=== PATIENT | male | born 1975 | race American Indian/Alaskan Native ===

== ENCOUNTER → 2017-08-19 | Emergency (ER) | payer MEDICARE ==
[~2017-08-19] MED LIST: APRESOLINE IV ONE; D5W/0.45% NACL/KCL 20 MEQ 20 MEQ/1,000 ML BAG IV ONE
[2017-08-19 20:48] LABS: Basophils % (Auto) 0.5 % (0.0-1.8); Eosinophils % (Auto) 0.6 % (0.0-4.3); Hematocrit 29.1 % (35.5-45.6); Hemoglobin 9.9 gm/dl (11.8-15.2); Lymphocytes # (Auto) 0.7 K/mm3 (1.2-5.4); Lymphocytes % (Auto) 9.7 % (13.4-35.0); Mean Corpuscular HGB Conc 34 % (32-34); Mean Corpuscular Hemoglobin 30 pg (28-32); Mean Corpuscular Volume 87 fl (84-94); Monocytes # (Auto) 0.3 K/mm3 (0.0-0.8); Monocytes % (Auto) 4.8 % (0.0-7.3); Platelet Count 182 K/mm3 (140-440); Red Blood Count 3.35 M/mm3 (3.65-5.03); Red Cell Distribution Width 17.9 % (13.2-15.2)
[2017-08-19 21:00] LABS: Calcium 8.1 mg/dL (8.4-10.2)
--- NOTE | 2017-08-19 21:18 | Emergency Department Report ---
ED Headache HPI - General Chief Complaint: High BP Stated Complaint: HEADACHE Time Seen by Provider: 08/19/17 21:15 - History of Present Illness Initial Comments: Patient is a 42-year-old male who is presenting status post headache. Patient' s states he normally gets hypertensive with dialysis. Patient on hemodialysis on Saturday was a Saturday. Patient was at dialysis today and started getting a headache. Patient does not have a history of headaches blood pressure did elevate. Patient denies any other signs and symptoms of end organ damage such as chest pain shortness of breath. The patient's only medical problems are hypertension and end-stage renal disease. Patient was sent from dialysis here because of the severe headache. Patient states headache was global 7 out of 10 in severity. Patient states is now resolved. Patient did have his dialysis stopped early secondary to this headache. Associated Symptoms: denies: facial pain, fever/chills, flushing, loss of consciousness, nausea/vomiting, nasal congestion, nasal drainage, numbness in legs/feet, seizures, sinus infection, stiff neck Allergies/Adverse Reactions: Allergies vancomycin Allergy (Verified 08/19/17 17:42) Unknown Home Medications: Ambulatory Orders Labetalol [Normodyne] 300 mg PO BID 08/19/17 Lisinopril [Zestril TAB] 40 mg PO QDAY 08/19/17 Sertraline [Zoloft] 50 mg PO QHS 08/19/17 Vit B Comp No.3/Folic/C/Biotin [Nephro-Juan Rx Tablet] 1 each PO DAILY 08/19/17 ED Review of Systems ROS: Stated complaint: HEADACHE Other details as noted in HPI Comment: All other systems reviewed and negative ED Past Medical Hx - Past Medical History Hx Hypertension: Yes Hx Renal Disease: Yes (HD-MWF) - Surgical History Additional Surgical History: graft BECKI - Social History Smoking Status: Current Every Day Smoker Substance Use Type: None - Medications Home Medications: Home Medications Medication Instructions Recorded Confirmed Last Taken Type Labetalol [Normodyne] 300 mg PO BID 08/19/17 08/19/17 Unknown History Lisinopril [Zestril TAB] 40 mg PO QDAY 08/19/17 08/19/17 Unknown History Sertraline [Zoloft] 50 mg PO QHS 08/19/17 08/19/17 Unknown History Vit B Comp No.3/Folic/C/Biotin 1 each PO DAILY 08/19/17 08/19/17 Unknown History [Nephro-Juan Rx Tablet] ED Physical Exam - General Limitations: No Limitations General appearance: alert, in no apparent distress - Head Head exam: Present: atraumatic, normocephalic - Eye Eye exam: Present: normal appearance - ENT ENT exam: Present: mucous membranes moist - Neck Neck exam: Present: normal inspection - Respiratory Respiratory exam: Present: normal lung sounds bilaterally. Absent: respiratory distress, wheezes, rales - Cardiovascular Cardiovascular Exam: Present: regular rate, normal rhythm. Absent: systolic murmur, diastolic murmur, rubs, gallop - GI/Abdominal GI/Abdominal exam: Present: soft, normal bowel sounds. Absent: distended, tenderness - Rectal Rectal exam: Present: deferred - Extremities Exam Extremities exam: Present: normal inspection - Back Exam Back exam: Present: normal inspection - Neurological Exam Neurological exam: Present: alert, oriented X3, CN II-XII intact, reflexes normal. Absent: motor sensory deficit - Psychiatric Psychiatric exam: Present: normal affect, normal mood - Skin Skin exam: Present: warm, dry, intact, normal color. Absent: rash ED Course Vital Signs 08/19/17 08/19/17 08/19/17 17:34 21:20 21:52 Temperature 98.1 F 97.9 F Pulse Rate 92 H 74 73 Respiratory 18 20 Rate Blood Pressure 190/108 184/102 Blood Pressure 184/102 [Right] O2 Sat by Pulse 99 98 Oximetry 08/19/17 08/19/17 22:05 22:30 Temperature Pulse Rate Respiratory 20 20 Rate Blood Pressure Blood Pressure 166/85 [Right] O2 Sat by Pulse 98 99 Oximetry ED Medical Decision Making - Lab Data Result diagrams: 08/19/17 20:34 08/19/17 20:34 - EKG Data -: EKG Interpreted by Ne - EKG Data Interpretation: other 08/19/17 21:17 EKG shows sinus rhythm rate of 77 normal axis normal and a low-dose there is evidence of right ventricular hypertrophy, interpretation is 1900 - Radiology Data Radiology results: report reviewed CT head without contrast shows a high attenuated mass in the right temporal brain of intermediate etiology however suspicious for proteinaceous or possibly micro-hemorrhagic intra-axial lesion. The shortness of potential differential considerations include but are not limited to astrocytoma, metastatic disease, lymphoma. Meningiomas not favored. There appears to be predominantly hyper enhancing mass with areas of necrosis. There is midline shift right to left. 6 mm. There is also a large amount of surrounding edema. Mass is 3.4 x 3.7 cm - Medical Decision Making Patient is a 42-year-old [place] male who is on dialysis Saturday was a Saturday. Patient states he gets headaches regularly during dialysis and his blood pressure sometimes elevates. Blood pressure at the time of dispose 160s systolic and he did have a positive response to hydralazine. I did contact [facility] regarding this patient his first transfer because of the possibility of micro-hemorrhagic components to his lesion. Dr. Melgar is excepting neurosurgeon. Patient be transferred what exam bed is available Critical care attestation.: If time is entered above; I have spent that time in minutes in the direct care of this critically ill patient, excluding procedure time. ED Disposition Clinical Impression: Brain mass, Cerebral hemorrhage, Hypertensive emergency, ESRD (end stage renal disease) on dialysis Disposition: DC/TX-70 ANOTHER TYPE HLTHCARE Is pt being admited?: No Does the pt Need Aspirin: No Condition: Critical Referrals: PRIMARY CARE, [Referring] - 3-5 Days
--- NOTE | 2017-08-19 21:33 | Cat Scan Report ---
FINAL REPORT PROCEDURE: CT HEAD/BRAIN WO CON TECHNIQUE: Computerized tomography of the head was performed without contrast material. HISTORY: headache, hypertension COMPARISON: No prior studies are available for comparison. FINDINGS: Skull and scalp: Normal. Paranasal sinuses: Normal. Ventricles and subarachnoid spaces: Normal. Cerebrum: High attenuated mass in the right temporal lobe measures 3.4 x 3.7 centimeters with moderate to large amount of edema above and below this mass lesion. There is midline shift right to left of 6 millimeters.. Cerebellum and brainstem: No evidence of hemorrhage, acute infarction or mass. Vasculature: Normal. Comments: None. IMPRESSION: High attenuated mass in the right temporal brain of indeterminate etiology however suspicious for a proteinaceous or possibly micro hemorrhagic intra-axial lesion. The short list of potential differential considerations include but are not limited to astrocytoma, metastatic disease, lymphoma. Meningioma is not favored. This appears to be predominately hyperenhancing mass process with serpiginous areas of necrosis Followup CT scan or preferably MRI with IV contrast is advised
[2017-08-19 22:33] LABS: INR 1.08 (0.87-1.13)
[2017-08-19 22:34] LABS: Partial Thromboplastin Time 33.7 Sec. (24.2-36.6)
[2017-08-20 02:44] VITALS: BP 156/84
== END | disposition other institution (70) ==
LOC: ED 16:14
DX: I61.9 Nontraumatic intracerebral hemorrhage, unspecified (principal); G93.9 Disorder of brain, unspecified; I12.0 Hypertensive chronic kidney disease with stage 5 chronic kidney disease or end stage renal disease; N18.6 End stage renal disease; Z99.2 Dependence on renal dialysis; F17.200 Nicotine dependence, unspecified, uncomplicated
CPT/HCPCS: 36415; 70450; 80048; 85025; 85610; 85730; 93005; 93010; 96374; 99285; J0360

== ENCOUNTER 2017-09-06 12:54 | Observation (INO) | payer MEDICARE ==
[2017-09-06] MEDS ORDERED: ZOFRAN IV PRN (15:43)
[2017-09-06] MEDS ORDERED: REGLAN IV PRN (15:43)
[2017-09-06] MEDS ORDERED: PERCOCET 5/325 PO PRN (15:43)
[2017-09-06] MEDS ORDERED: TYLENOL PO PRN (15:43)
[2017-09-06] MEDS ORDERED: AMBIEN PO PRN (15:43)
[2017-09-06] MEDS ORDERED: SODIUM CHLORIDE FLUSH SYRINGE 10 ML IV PRN (15:43)
--- NOTE | 2017-09-06 15:43 | History and Physical Report ---
History of Present Illness Date of examination: 09/06/17 Date of admission: 09/06/17 14:35 Chief complaint: CC High BP History of present illness: [place] Sent from Dr Anthony's office for direct admit For management of High BP of 220/110 and ESRD with volume overload for HD Patient recently had brain tumor removed at [place] 2 weeks ago.Doing well post op otherwise.Was Given Clonidine inOffice and BP in Ed was about 140/90 No SOB Past History Past Medical History: ESRD, hypertension, other (Brain tumor -patient unable to tell the diagnosis) Past Surgical History: Other (AV fistula on LUE and Brain tumor removal) Social history: lives with family, full code Family history: hypertension Medications and Allergies Allergies Allergy/AdvReac Type Severity Reaction Status Date / Time vancomycin Allergy Unknown Verified 08/19/17 17:42 Home Medications Medication Instructions Recorded Confirmed Last Taken Type Labetalol [Normodyne] 300 mg PO BID 08/19/17 09/06/17 Unknown History Lisinopril [Zestril TAB] 40 mg PO QDAY 08/19/17 09/06/17 Unknown History Sertraline [Zoloft] 50 mg PO QHS 08/19/17 09/06/17 Unknown History Vit B Comp No.3/Folic/C/Biotin 1 each PO DAILY 08/19/17 09/06/17 Unknown History [Nephro-Juan Rx Tablet] B Complex 11/Folic/C/Biot/Zinc 1 each PO DAILY 09/06/17 09/06/17 Unknown History [Dialyvite with Zinc Tablet] Calcium Acetate [Phoslo] 2,001 mg PO TID 09/06/17 09/06/17 Unknown History Calcium Carbonate [Tums] 400 mg PO DAILY 09/06/17 09/06/17 Unknown History Sertraline [Zoloft] 50 mg PO QDAY 09/06/17 09/06/17 Unknown History Vit B Comp No.3/Folic/C/Biotin 1 each PO DAILY 09/06/17 09/06/17 Unknown History [Nephro-Juan Rx Tablet] amLODIPine [Norvasc] 10 mg PO DAILY 09/06/17 09/06/17 Unknown History Review of Systems All systems: negative Exam - Constitutional General appearance: Present: no acute distress, well-nourished - EENT Eyes: Present: PERRL ENT: hearing intact, clear oral mucosa - Neck Neck: Present: supple, normal ROM - Respiratory Respiratory effort: normal Respiratory: bilateral: CTA - Cardiovascular Heart rate: 78 Rhythm: regular Heart Sounds: Present: S1 & S2. Absent: rub, click - Extremities Extremities: pulses symmetrical, No edema Peripheral Pulses: within normal limits - Abdominal General gastrointestinal: Present: soft, non-tender, non-distended, normal bowel sounds Male genitourinary: Present: normal - Rectal Rectal Exam: deferred - Integumentary Integumentary: Present: clear, warm, dry - Musculoskeletal Musculoskeletal: gait normal, strength equal bilaterally - Psychiatric Psychiatric: appropriate mood/affect, intact judgment & insight - Neurologic Neurologic: CNII-XII intact, moves all extremities - Allied Health Allied health notes reviewed: nursing, case management Results - Labs CBC & Chem 7: 09/06/17 17:07 09/06/17 17:07 - Imaging and Cardiology EKG: report reviewed Chest x-ray: report reviewed (NAF) Assessment and Plan Advance Directives: Yes (Full code) VTE prophylaxis?: Chemical Plan of care discussed with patient/family: Yes - Patient Problems (1) Hypertensive emergency Current Visit: Yes Status: Acute Plan to address problem: Hydralazine IV 10 mg q3 PRn Resume his home antihypertensives (2) Anemia Current Visit: Yes Status: Chronic Qualifiers: Anemia type: due to chronic kidney disease Chronic kidney disease stage: on chronic dialysis Qualified Code(s): N18.6 - End stage renal disease; D63.1 - Anemia in chronic kidney disease; Z99.2 - Dependence on renal dialysis Plan to address problem: Transfuse during HD (3) ESRD needing dialysis Current Visit: Yes Status: Chronic Plan to address problem: Dr Anthony consulted (4) Volume overload Current Visit: Yes Status: Acute Qualifiers: Hypervolemia type: unspecified Qualified Code(s): E87.70 - Fluid overload, unspecified Plan to address problem: may need HD for 2 or 3 days in a row (5) Brain tumor Current Visit: Yes Status: Resolved Plan to address problem: Removed recently Has Periorbital echymosis sec to surgery Should resolve spontaneously (6) AV fistula occlusion Current Visit: Yes Status: Acute Qualifiers: Encounter type: initial encounter Qualified Code(s): T82.898A - Other specified complication of vascular prosthetic devices, implants and grafts, initial encounter Plan to address problem: Vascular surgery consulted (7) DVT prophylaxis Current Visit: Yes Status: Acute Plan to address problem: only scd's
--- NOTE | 2017-09-06 17:11 | XRay Report ---
FINAL REPORT EXAM: XR CHEST ROUTINE 2V HISTORY: SOB TECHNIQUE: 2 view examination of the chest PRIORS: None FINDINGS: A left venous catheter is in place with distal tip near the cavoatrial junction region. Slight thoracic spine curvature with mid left apex. There is no visible pulmonary consolidation, pleural effusion, or pneumothorax. Cardiac silhouette size is normal without vascular congestion. No visible acute displaced fracture in the regional skeleton. IMPRESSION: No evidence of acute cardiopulmonary disease
[2017-09-06 17:21] LABS: Basophils % (Auto) 0.2 % (0.0-1.8); Eosinophils # (Auto) 0.2 K/mm3 (0.0-0.4); Eosinophils % (Auto) 1.4 % (0.0-4.3); Hemoglobin 6.3 gm/dl (11.8-15.2); Lymphocytes # (Auto) 1.2 K/mm3 (1.2-5.4); Lymphocytes % (Auto) 9.8 % (13.4-35.0); Mean Corpuscular HGB Conc 32 % (32-34); Mean Corpuscular Hemoglobin 28 pg (28-32); Mean Corpuscular Volume 88 fl (84-94); Monocytes # (Auto) 1.1 K/mm3 (0.0-0.8); Monocytes % (Auto) 8.5 % (0.0-7.3); Platelet Count 117 K/mm3 (140-440); Red Blood Count 2.25 M/mm3 (3.65-5.03); Red Cell Distribution Width 18.6 % (13.2-15.2)
[2017-09-06 17:23] LABS: Hematocrit 19.7 % (35.5-45.6)
[2017-09-06 17:47] LABS: Albumin 3.3 g/dL (3.9-5); BUN/Creatinine Ratio 6; Blood Urea Nitrogen 64 mg/dL (9-20); Calcium 7.7 mg/dL (8.4-10.2); Hemolysis Index 5
[2017-09-06] MEDS: NORMODYNE PO SCH (17:53)
[2017-09-06] MEDS: ZESTRIL PO SCH (17:54)
[2017-09-06] MEDS: PEPCID PO SCH ×2 (17:54→22:50)
[2017-09-06 18:00] LABS: Alanine Aminotransferase < 5 units/L (7-56)
[2017-09-06] MEDS ORDERED: NACL 0.9% 500 ML 500 ML IV ONE (18:31)
[2017-09-06] MEDS: ZOLOFT PO SCH (22:50)
[2017-09-06] MEDS: SODIUM CHLORIDE FLUSH SYRINGE 10 ML IV SCH (22:50)
[2017-09-07] MEDS: NORMODYNE PO SCH ×3 (00:08→17:17)
[2017-09-07] MEDS ORDERED: NACL 0.9% 500 ML 500 ML IV ONE ×3 (01:30→13:47)
[2017-09-07] MEDS ORDERED: APRESOLINE IV NR (07:34)
[2017-09-07] MEDS: PHOSLO PO SCH ×3 (08:32→17:17)
[2017-09-07] MEDS ORDERED: NON-FORMULARY (Vit B Comp No.3/Folic/C/Biotin [Nephro-Vite Rx Tablet] 1 EACH) PO SCH (10:00)
[2017-09-07] MEDS: ZESTRIL PO SCH (10:08)
[2017-09-07] MEDS: TUMS PO SCH (10:08)
[2017-09-07] MEDS: PEPCID PO SCH ×2 (10:08→21:18)
[2017-09-07] MEDS: Renal Caps PO SCH (10:09)
[2017-09-07] MEDS: NORVASC PO SCH (10:09)
[2017-09-07] MEDS: SODIUM CHLORIDE FLUSH SYRINGE 10 ML IV SCH ×2 (10:09→21:19)
[2017-09-07] MEDS ORDERED: NACL 0.9% 100 ML IV PRN (11:53)
--- NOTE | 2017-09-07 11:58 | Consultation ---
History of Present Illness - Reason for Consult Consult date: 09/07/17 end stage renal disease, accelerated hypertension Requesting physician: ZOË MCCRARY - History of Present Illness Sent from [facility] For management of High BP of 220/110 and ESRD with volume overload for HD Patient recently had brain tumor removed at [place] 2 weeks ago.Doing well post op otherwise.Was Given Clonidine inOffice and BP in Ed was about 140/90 No SOB Past History Past Medical History: ESRD, hypertension, other (Brain tumor -patient unable to tell the diagnosis) Past Surgical History: Other (AV fistula on LUE and Brain tumor removal) Social history: lives with family, full code Family history: hypertension Medications and Allergies Allergies Allergy/AdvReac Type Severity Reaction Status Date / Time vancomycin Allergy Unknown Verified 08/19/17 17:42 Home Medications Medication Instructions Recorded Confirmed Last Taken Type Labetalol [Normodyne] 300 mg PO BID 08/19/17 09/06/17 Unknown History Lisinopril [Zestril TAB] 40 mg PO QDAY 08/19/17 09/06/17 Unknown History Sertraline [Zoloft] 50 mg PO QHS 08/19/17 09/06/17 Unknown History Vit B Comp No.3/Folic/C/Biotin 1 each PO DAILY 08/19/17 09/06/17 Unknown History [Nephro-Juan Rx Tablet] B Complex 11/Folic/C/Biot/Zinc 1 each PO DAILY 09/06/17 09/06/17 Unknown History [Dialyvite with Zinc Tablet] Calcium Acetate [Phoslo] 2,001 mg PO TID 09/06/17 09/06/17 Unknown History Calcium Carbonate [Tums] 400 mg PO DAILY 09/06/17 09/06/17 Unknown History Sertraline [Zoloft] 50 mg PO QDAY 09/06/17 09/06/17 Unknown History Vit B Comp No.3/Folic/C/Biotin 1 each PO DAILY 09/06/17 09/06/17 Unknown History [Nephro-Juan Rx Tablet] amLODIPine [Norvasc] 10 mg PO DAILY 09/06/17 09/06/17 Unknown History Active Meds: Active Medications Acetaminophen (Tylenol) 650 mg PO Q4H PRN PRN Reason: Pain MILD(1-3)/Fever >100.5/[place] Amlodipine Besylate (Norvasc) 10 mg PO DAILY [facility] Last Admin: 09/07/17 10:09 Dose: 10 mg Calcium Acetate (Phoslo) 2,001 mg PO TID [facility] Last Admin: 09/07/17 08:32 Dose: 2,001 mg Calcium Carbonate/Glycine (Tums) 400 mg PO DAILY [facility] Last Admin: 09/07/17 10:08 Dose: 400 mg Epoetin Gianni (Epogen) 20,000 unit IV ZACK PRN PRN Reason: hemodialysis Famotidine (Pepcid) 10 mg PO BID [facility] Last Admin: 09/07/17 10:08 Dose: 10 mg Sodium Chloride (Nacl 0.9%) 100 mls @ 999 mls/hr IV ZACK PRN PRN Reason: Hypotension Sodium Chloride (Nacl 0.9% 500 Ml) 500 mls @ 0 mls/hr IV ONCE ONE Stop: 09/07/17 11:54 Labetalol HCl (Normodyne) 300 mg PO Q8H [facility] Last Admin: 09/07/17 08:34 Dose: 300 mg Lisinopril (Zestril) 40 mg PO QDAY [facility] Last Admin: 09/07/17 10:08 Dose: 40 mg Metoclopramide HCl (Reglan) 10 mg IV Q6H PRN PRN Reason: Nausea And Vomiting Multivit/Ca Carb/B Cmplx/FA/Prenat (Renal Caps) 1 cap PO QDAY [facility] Last Admin: 09/07/17 10:09 Dose: 1 cap Ondansetron HCl (Zofran) 4 mg IV Q8H PRN PRN Reason: Nausea And Vomiting Oxycodone/Acetaminophen (Percocet 5/325) 1 tab PO Q6H PRN PRN Reason: Pain, Moderate (4-6) Sertraline HCl (Zoloft) 50 mg PO QHS [facility] Last Admin: 09/06/17 22:50 Dose: 50 mg Sodium Chloride (Sodium Chloride Flush Syringe 10 Ml) 10 ml IV BID [facility] Last Admin: 09/07/17 10:09 Dose: 10 ml Sodium Chloride (Sodium Chloride Flush Syringe 10 Ml) 10 ml IV PRN PRN PRN Reason: LINE FLUSH Zolpidem Tartrate (Ambien) 5 mg PO QHS PRN PRN Reason: Insomnia Review of Systems Constitutional: fatigue, weakness, malaise Exam - Vital Signs Vital signs: Vital Signs Temp Pulse Resp Pulse Ox 98.5 F 85 22 99 09/06/17 16:32 09/06/17 16:32 09/06/17 16:32 09/06/17 16:32 - Physical Exam Narrative exam: Review of Systems All systems: negative Exam - Constitutional General appearance: Present: no acute distress, well-nourished - EENT Eyes: Present: PERRL ENT: hearing intact, clear oral mucosa - Neck Neck: Present: supple, normal ROM - Respiratory Respiratory effort: normal Respiratory: bilateral: CTA - Cardiovascular Heart rate: 78 Rhythm: regular Heart Sounds: Present: S1 & S2. Absent: rub, click - Extremities Extremities: pulses symmetrical, No edema Peripheral Pulses: within normal limits - Abdominal General gastrointestinal: Present: soft, non-tender, non-distended, normal bowel sounds Male genitourinary: Present: normal - Rectal Rectal Exam: deferred - Integumentary Integumentary: Present: clear, warm, dry - Musculoskeletal Musculoskeletal: gait normal, strength equal bilaterally - Psychiatric Psychiatric: appropriate mood/affect, intact judgment & insight - Neurologic Neurologic: CNII-XII intact, moves all extremities - Allied Health Allied health notes reviewed: nursing, case management Results - Lab Results 09/06/17 17:07 09/06/17 17:07 Most recent lab results Calcium 7.7 mg/dL (8.4-10.2) L 09/06/17 17:07 Assessment and Plan Impression: * ESRD * Brain mass * symptomatic anemia * Acc HTN * volume overload Plan: * HD today with uf as tolerated * avoid heparin products * transfuse PRBCS * epogen with hd * strict i/o * avoid nephrotoxins * fluid restriction * daily cbc and lytes
--- NOTE | 2017-09-07 12:04 | Progress Note ---
Assessment and Plan Assessment and plan: Patient is a 43 yo man with a history of ESRD on HD, hypertension and tobacco dependency who initially came here to [facility] ED with headaches on 08/19/17 and was found to have brain mass and he was transferred to [facility]. He did have brain mass resection and has a fresh clean surgical scar (it appears the suture has been recently removed). He comes back to [facility] as a direct admit from Dr. Anthony's HD center for bp of 220/110 and volume overload during hemodialysis, pt appears to have slight cognitive delay. -Hypertension urgency: When necessary IV antihypertensives, low-salt diet -End-stage renal disease needing hemodialysis: Nephrology following -Tobacco dependency: Counseled stopping, offered nicotine patch -Recent brain mass, details unavailable: Records from [facility] will be helpful, unlikely obtainable over the weekend History Interval history: Patient was seen and examined. Follow-up on current diagnosis. Overnight uneventful. Patient denies any chest pain, shortness breath, nausea/vomiting or severe headaches. Imaging, nursing note, chart, labs and old chart reviewed. Discussed with patient. Hospitalist Physical - Physical exam Narrative exam: GEN: WDWN, NAD, AWAKE, ALERT, ORIENTATED x 2, some cognitive delay HEENT: , large frontal surgical scar right forehead area, EOMI, PERRL, OP Clear NECK: supple, no adenopathy, no thyromegaly, no JVD CVS/HEART: RRR, NORMAL S1S2, pulses present bilaterally CHEST/LUNGS: CTA B, Symmetrical chest expansion, good air entry bilaterally GI/Abdomen: soft, NTND, good bowel sounds, no guarding or rebound /Bladder: no suprapubic tenderness, no CVA or paraspinal tenderness EXT/Skin: no c/c/e, no obvious rash MSK: FROM x 4 Neuro: CN 2-12 grossly intact, no new focal deficits Psych: calm - Constitutional Vitals: Temp Pulse Resp BP Pulse Ox 98.2 F 88 20 165/96 95 09/07/17 07:35 09/07/17 07:35 09/07/17 07:35 09/07/17 07:35 09/07/17 07:35 General appearance: Present: no acute distress, well-nourished Results - Labs CBC & Chem 7: 09/06/17 17:07 09/06/17 17:07 Labs: Laboratory Last Values WBC 12.4 K/mm3 (4.5-11.0) H 09/06/17 17:07 RBC 2.25 M/mm3 (3.65-5.03) L 09/06/17 17:07 Hgb 6.3 gm/dl (11.8-15.2) L 09/06/17 17:07 Hct 19.7 % (35.5-45.6) L* 09/06/17 17:07 MCV 88 fl (84-94) 09/06/17 17:07 MCH 28 pg (28-32) 09/06/17 17:07 MCHC 32 % (32-34) 09/06/17 17:07 RDW 18.6 % (13.2-15.2) H 09/06/17 17:07 Plt Count 117 K/mm3 (140-440) L 09/06/17 17:07 Lymph % (Auto) 9.8 % (13.4-35.0) L 09/06/17 17:07 [place] % (Auto) 8.5 % (0.0-7.3) H 09/06/17 17:07 Eos % (Auto) 1.4 % (0.0-4.3) 09/06/17 17:07 Baso % (Auto) 0.2 % (0.0-1.8) 09/06/17 17:07 Lymph # 1.2 K/mm3 (1.2-5.4) 09/06/17 17:07 [place] # 1.1 K/mm3 (0.0-0.8) H 09/06/17 17:07 Eos # 0.2 K/mm3 (0.0-0.4) 09/06/17 17:07 Baso # 0.0 K/mm3 (0.0-0.1) 09/06/17 17:07 Seg Neutrophils % 80.1 % (40.0-70.0) H 09/06/17 17:07 Seg Neutrophils # 10.0 K/mm3 (1.8-7.7) H 09/06/17 17:07 Sodium 141 mmol/L (137-145) 09/06/17 17:07 Potassium 4.7 mmol/L (3.6-5.0) 09/06/17 17:07 Chloride 94.6 mmol/L (98-107) L 09/06/17 17:07 Carbon Dioxide 29 mmol/L (22-30) 09/06/17 17:07 Anion Gap 22 mmol/L 09/06/17 17:07 BUN 64 mg/dL (9-20) H 09/06/17 17:07 Creatinine 10.4 mg/dL (0.8-1.5) H 09/06/17 17:07 Estimated GFR 7 ml/min 09/06/17 17:07 BUN/Creatinine Ratio 6 % 09/06/17 17:07 Glucose 85 mg/dL (75-100) 09/06/17 17:07 Hemoglobin A1c < 4.2 % (4-6) 09/06/17 17:07 Calcium 7.7 mg/dL (8.4-10.2) L 09/06/17 17:07 Total Bilirubin 0.30 mg/dL (0.1-1.2) 09/06/17 17:07 AST 58 units/L (5-40) H 09/06/17 17:07 ALT < 5 units/L (7-56) L 09/06/17 17:07 Alkaline Phosphatase 50 units/L (35-129) 09/06/17 17:07 Total Protein 5.9 g/dL (6.3-8.2) L 09/06/17 17:07 Albumin 3.3 g/dL (3.9-5) L 09/06/17 17:07 Albumin/Globulin Ratio 1.3 % 09/06/17 17:07 TSH 3.140 mlU/mL (0.270-4.200) 09/06/17 17:10 Blood Type A POSITIVE 09/06/17 19:43 Antibody Screen Positive 09/06/17 19:43 Antibody Identification Anti-K 09/06/17 19:43 Crossmatch See Detail 09/06/17 19:43
[2017-09-07 13:17] LABS: Hematocrit 20.4 % (35.5-45.6); Hemoglobin 6.9 gm/dl (11.8-15.2)
[2017-09-07 13:54] LABS: Hepatitis A Antibody IgM Non-Reactive (NonReactive); Hepatitis B Core IgM Non-Reactive (NonReactive); Hepatitis B Surface Antigen Non-Reactive (Negative); Hepatitis C Virus Antibody Non-Reactive (NonReactive)
--- NOTE | 2017-09-07 14:30 | Event Note ---
Date: 09/07/17 Consulted due to reported clotted AVG. I saw the patient in diaylsis - the LUE AVG is being used with no problems and normal flows. The dialysis nurse is unsure as to why a consult placed requested. Please call if there are any issues.
[2017-09-07] MEDS ORDERED: NACL 0.9 (PRIMING MACHINE ONLY DIALYSIS) MC ONE (14:56)
[2017-09-07] MEDS: ZOLOFT PO SCH (21:18)
[2017-09-08] MEDS: NORMODYNE PO SCH ×2 (00:30→09:24)
[2017-09-08 05:51] LABS: Basophils % (Auto) 0.1 % (0.0-1.8); Eosinophils # (Auto) 0.1 K/mm3 (0.0-0.4); Hematocrit 28.4 % (35.5-45.6); Hemoglobin 9.5 gm/dl (11.8-15.2); Lymphocytes # (Auto) 0.9 K/mm3 (1.2-5.4); Lymphocytes % (Auto) 8.5 % (13.4-35.0); Mean Corpuscular HGB Conc 34 % (32-34); Mean Corpuscular Hemoglobin 29 pg (28-32); Mean Corpuscular Volume 86 fl (84-94); Monocytes # (Auto) 0.7 K/mm3 (0.0-0.8); Monocytes % (Auto) 7.3 % (0.0-7.3); Platelet Count 108 K/mm3 (140-440); Red Cell Distribution Width 16.7 % (13.2-15.2)
[2017-09-08 06:06] LABS: Calcium 8.2 mg/dL (8.4-10.2)
[2017-09-08] MEDS: PHOSLO PO SCH (08:28)
[2017-09-08 09:15] VITALS: BP 163/88
[2017-09-08] MEDS: PEPCID PO SCH (09:58)
[2017-09-08] MEDS: NORVASC PO SCH (09:58)
[2017-09-08] MEDS: Renal Caps PO SCH (09:59)
[2017-09-08] MEDS: ZESTRIL PO SCH (09:59)
[2017-09-08] MEDS: TUMS PO SCH (09:59)
[2017-09-08] MEDS: SODIUM CHLORIDE FLUSH SYRINGE 10 ML IV SCH (10:00)
--- NOTE | 2017-09-08 11:31 | Discharge Summary ---
Providers - Providers Date of Admission: 09/06/17 14:35 Date of discharge: 09/08/17 Attending physician: LAURA TIMMONS 09/06/17 14:26 Consult to Physician [CONS] Routine Comment: Consulting Provider: MEGHAN ANTHONY Physician Instructions: Reason For Exam: ESRD, UNCONTROLLED HTN 09/06/17 15:50 Consult to Physician [CONS] Routine Comment: Consulting Provider: GAIL ARAGON Physician Instructions: Reason For Exam: clotted AVF Primary care physician: ROSIE SAUNDERS Hospitalization Condition: Stable Hospital course: Assessment and plan: Patient is a 43 yo man with a history of ESRD on HD, hypertension and tobacco dependency who initially came here to PSYCHIATRIC ED with headaches on 08/19/17 and was found to have brain mass and he was transferred to [facility]. He did have brain mass resection and has a fresh clean surgical scar (it appears the suture has been recently removed). He comes back to PSYCHIATRIC as a direct admit from Dr. [facility] HD center for bp of 220/110 and volume overload during hemodialysis, pt appears to have slight cognitive delay. -Hypertension urgency: When necessary IV antihypertensives, low-salt diet -End-stage renal disease needing hemodialysis: Nephrology following -Tobacco dependency: Counseled stopping, offered nicotine patch -Recent brain mass, details unavailable: Records from [place] will be helpful, unlikely obtainable over the weekend Disposition: DC-01 TO HOME OR SELFCARE Time spent for discharge: 36 minutes Core Measure Documentation - Palliative Care Palliative Care/ Comfort Measures: Not Applicable - Core Measures Any of the following diagnoses?: none - VTE Discharge Requirements Deep Vein Thrombosis/Pulmonary Embolism Present on Admission: No Has pt received <5 days of overlap therapy or INR<2.0: No Anticoagulant overlap therapy prescribed at discharge: No Contraindication No Overlap Therapy order at DC: Not Indicated Exam - Physical Exam Narrative exam: GEN: WDWN, NAD, AWAKE, ALERT, ORIENTATED x 2, some cognitive delay HEENT: , large frontal surgical scar right forehead area, EOMI, PERRL, OP Clear NECK: supple, no adenopathy, no thyromegaly, no JVD CVS/HEART: RRR, NORMAL S1S2, pulses present bilaterally CHEST/LUNGS: CTA B, Symmetrical chest expansion, good air entry bilaterally GI/Abdomen: soft, NTND, good bowel sounds, no guarding or rebound /Bladder: no suprapubic tenderness, no CVA or paraspinal tenderness EXT/Skin: no c/c/e, no obvious rash MSK: FROM x 4 Neuro: CN 2-12 grossly intact, no new focal deficits Psych: calm - Constitutional Vitals: Temp Pulse Resp BP Pulse Ox 98.3 F 79 16 163/88 93 09/08/17 08:00 09/08/17 09:59 09/08/17 08:00 09/08/17 09:59 09/08/17 08:00 Plan Activity: no driving until cleared by PCP, up only with assistance, fall precautions, other (no strenous activities) Diet: renal Follow up with: ROSIE SAUNDERS MD [Primary Care Provider] - 7 Days
--- NOTE | 2017-09-08 11:32 | Progress Note ---
Assessment and Plan Impression: * ESRD * Brain mass * symptomatic anemia * Acc HTN * volume overload Plan: * HD MWF and prn for volume control * avoid heparin products * transfuse PRBCS prn * epogen with hd * strict i/o * avoid nephrotoxins * fluid restriction * daily cbc and lytes Subjective Date of service: 09/08/17 Principal diagnosis: esrd, anasarca Interval history: resting in bed today, no acute events Objective - Exam Narrative Exam: Review of Systems All systems: negative Exam - Constitutional General appearance: Present: no acute distress, well-nourished - EENT Eyes: Present: PERRL ENT: hearing intact, clear oral mucosa - Neck Neck: Present: supple, normal ROM - Respiratory Respiratory effort: normal Respiratory: bilateral: CTA - Cardiovascular Heart rate: 78 Rhythm: regular Heart Sounds: Present: S1 & S2. Absent: rub, click - Extremities Extremities: pulses symmetrical, No edema Peripheral Pulses: within normal limits - Abdominal General gastrointestinal: Present: soft, non-tender, non-distended, normal bowel sounds Male genitourinary: Present: normal - Rectal Rectal Exam: deferred - Integumentary Integumentary: Present: clear, warm, dry - Musculoskeletal Musculoskeletal: gait normal, strength equal bilaterally - Psychiatric Psychiatric: appropriate mood/affect, intact judgment & insight - Neurologic Neurologic: CNII-XII intact, moves all extremities - Allied Health Allied health notes reviewed: nursing, case management - Vital Signs Vital signs: Vital Signs - 12hr 09/08/17 09/08/17 09/08/17 00:30 04:37 08:00 Temperature 98.1 F 98.3 F Pulse Rate 70 86 79 Respiratory 18 16 Rate Blood Pressure 116/69 135/87 163/88 O2 Sat by Pulse 95 93 Oximetry 09/08/17 09/08/17 09/08/17 09:24 09:58 09:59 Temperature Pulse Rate 79 79 79 Respiratory Rate Blood Pressure 163/88 163/88 163/88 O2 Sat by Pulse Oximetry - Lab 09/08/17 05:32 09/08/17 05:32 Most recent lab results Calcium 8.2 mg/dL (8.4-10.2) L 09/08/17 05:32
== END 2017-09-08 11:35 | disposition home or self-care (01) ==
LOC: UNDOADMIN 12:54 → 3A 12:54
PROVIDERS: ADMIT Internal Medicine; ATTEND Internal Medicine
DX: I16.1 Hypertensive emergency (principal); I16.0 Hypertensive urgency; E87.70 Fluid overload, unspecified; T82.898A Other specified complication of vascular prosthetic devices, implants and grafts, initial encounter; I12.0 Hypertensive chronic kidney disease with stage 5 chronic kidney disease or end stage renal disease; N18.6 End stage renal disease; D63.1 Anemia in chronic kidney disease; Z99.2 Dependence on renal dialysis; F17.200 Nicotine dependence, unspecified, uncomplicated; Z86.011 Personal history of benign neoplasm of the brain
CPT/HCPCS: 36415; 36430; 71046; 80048; 80053; 80074; 83036; 84443; 85014; 85018; 85025; 86850; 86870; 86900; 86901; 86902; 86922; 93005; 93010; 96361; 96374; 96375; G0257; G0378; G0379; J0360; J0885; J7030; J7040; P9016

== ENCOUNTER 2018-02-11 17:13 | Emergency (ER) | payer MEDICARE ==
--- NOTE | 2018-02-11 18:02 | Emergency Department Report ---
HPI - General Chief Complaint: Psych Time Seen by Provider: 02/11/18 17:40 - HPI HPI: 42-year-old Citizen Of [place] male presents to the emergency department via PD from the [facility] as a 1013 from them with concern for some aggressive behavior. The patient himself says that he has a friend named "Hugh " who apparently gave some woman necklace and this woman sold it. The woman was at the counseling center as well and the patient says that he confronted her about selling the necklace and says that he was called a racist name. He admits that this did anger him and the patient says that he pointed his finger at her and told her that she should not call people names because "something could happen." Patient denies making any specific threats against her or anyone else. He denies any hallucinations or any suicidal or homicidal ideations. The 1013, written by a social and political studies professor, states that the patient "voiced during individual therapy that he would kill his roommate. He aggressively walked passed another group member pushing the group members legs. " Patient says that he lives in a long term but there is not a medical or psychiatric reason why he lives there. He has a past medical history of hypertension, end-stage renal disease on hemodialysis on Saturday/Saturday/ Saturday and says he has been compliant with his dialysis. He does have a remote history of a brain tumor and subsequent surgery for removal. ED Past Medical Hx - Past Medical History Hx Hypertension: Yes Hx Renal Disease: Yes (HD-MWF) Additional medical history: born with one kidney - Surgical History Additional Surgical History: graft BECKI - Social History Smoking Status: Current Every Day Smoker Substance Use Type: None - Medications Home Medications: Home Medications Medication Instructions Recorded Confirmed Last Taken Type Calcium Carbonate [Tums] 400 mg PO DAILY 09/06/17 09/06/17 Unknown History Acetaminophen [Acetaminophen TAB] 650 mg PO Q4H PRN #30 tablet 09/08/17 Unknown Rx Calcium Acetate [Phoslo] 2,001 mg PO TID #90 09/08/17 09/06/17 Unknown Rx Labetalol [Normodyne TAB] 300 mg PO BID #60 09/08/17 09/06/17 Unknown Rx Lisinopril [Zestril TAB] 40 mg PO QDAY #30 09/08/17 09/06/17 Unknown Rx Sertraline [Zoloft] 50 mg PO QHS #30 09/08/17 09/06/17 Unknown Rx Vit B Comp No.3/Folic/C/Biotin 1 each PO DAILY #30 09/08/17 09/06/17 Unknown Rx [Nephro-Juan Rx Tablet] amLODIPine [Norvasc] 10 mg PO DAILY #30 09/08/17 09/06/17 Unknown Rx ED Review of Systems ROS: Stated complaint: AMS Other details as noted in HPI Comment: All other systems reviewed and negative Constitutional: denies: chills, fever Eyes: denies: eye pain, eye discharge, vision change ENT: denies: ear pain, throat pain Respiratory: denies: cough, shortness of breath, wheezing Cardiovascular: denies: chest pain, palpitations Gastrointestinal: denies: abdominal pain, nausea, diarrhea Genitourinary: denies: urgency, dysuria Musculoskeletal: denies: back pain, joint swelling, arthralgia Skin: denies: rash, lesions Neurological: denies: headache, weakness, paresthesias Psychiatric: denies: auditory hallucinations, visual hallucinations, suicidal thoughts Physical Exam - Physical Exam Vital Signs: Vital Signs 02/11/18 02/11/18 17:28 17:52 Temperature 99.2 F Pulse Rate 93 H Respiratory 18 18 Rate Blood Pressure 145/90 O2 Sat by Pulse 98 Oximetry Physical Exam: GENERAL: The patient is well-developed well-nourished. HENT: Normocephalic. Atraumatic. Patient has moist mucous membranes. EYES: Extraocular motions are intact. NECK: Supple. Trachea is midline. CHEST/LUNGS: Clear to auscultation. There is no respiratory distress noted. HEART/CARDIOVASCULAR: Regular. There is no tachycardia. There is no murmur. ABDOMEN: Abdomen is soft, nontender. Patient has normal bowel sounds. There is no abdominal distention. SKIN: Skin is warm and dry. NEURO: The patient is awake, alert, and oriented. The patient is cooperative. The patient has no focal neurologic deficits. The patient has normal speech. MUSCULOSKELETAL: There is no tenderness or deformity. There is no limitation range of motion. There is no evidence of acute injury. PSYCH: Patient is calm and appropriate. ED Course Vital Signs 02/11/18 02/11/18 17:28 17:52 Temperature 99.2 F Pulse Rate 93 H Respiratory 18 18 Rate Blood Pressure 145/90 O2 Sat by Pulse 98 Oximetry ED Medical Decision Making - Lab Data Result diagrams: 02/11/18 18:30 02/11/18 18:30 - Medical Decision Making This patient was sent in from a counseling center for some alleged aggressive behavior. The patient himself says that he was called some names and that he did approach the person who did it and told them it is appropriate and may have even done that in an agitated state, however he denies that he made any threats towards this person. The review is 1013 also says that the patient was in some type of individual counseling but the patient says that he was in group counseling. When seen in the emergency department, the patient denies any suicidal or homicidal ideations or any auditory or visual hallucinations. He is been in the emergency department for multiple hours and has remained calm and appropriate. No signs of any acute psychosis. He was seen by the psych dumpster driver who agrees that the patient does not appear to be a candidate to be made a 1013 or for any inpatient psychiatric involuntary treatment. Patient's labs were mostly unremarkable. He does have renal insufficiency but the patient is end-stage renal disease on hemodialysis and due for dialysis tomorrow. Vital signs stable throughout his ED course. I spoke with the long term epic cupid analyst who says that she will arrange for transportation for this patient back to the long term this evening. The patient was given some outpatient referrals and instructed to continue with his normal dialysis regimen. Critical Care Time: No Critical care attestation.: If time is entered above; I have spent that time in minutes in the direct care of this critically ill patient, excluding procedure time. ED Disposition Clinical Impression: ESRD (end stage renal disease) on dialysis, Medical clearance for psychiatric admission Disposition: DC-01 TO HOME OR SELFCARE Is pt being admited?: No Condition: Stable Instructions: Chronic Kidney Disease (ED) Additional Instructions: Please continue with your normal dialysis regimen. Follow-up with your primary care physician and affiliate manager. Return to the emergency department with any concerns or any acute distress. Referrals: PRIMARY CARE, [Primary Care Provider] - 3-5 Days [facility] [Outside] - 3-5 Days [facility] [Outside] - 3-5 Days [facility] [Other] - 3-5 Days Time of Disposition: 19:34
[2018-02-11 18:50] LABS: Basophils % (Auto) 0.5 % (0.0-1.8); Eosinophils # (Auto) 0.1 K/mm3 (0.0-0.4); Eosinophils % (Auto) 1.6 % (0.0-4.3); Hematocrit 35.5 % (35.5-45.6); Hemoglobin 11.8 gm/dl (11.8-15.2); Lymphocytes # (Auto) 0.8 K/mm3 (1.2-5.4); Lymphocytes % (Auto) 10.6 % (13.4-35.0); Mean Corpuscular HGB Conc 33 % (32-34); Mean Corpuscular Hemoglobin 29 pg (28-32); Mean Corpuscular Volume 88 fl (84-94); Monocytes # (Auto) 0.5 K/mm3 (0.0-0.8); Monocytes % (Auto) 6.5 % (0.0-7.3); Platelet Count 149 K/mm3 (140-440); Red Blood Count 4.05 M/mm3 (3.65-5.03); Red Cell Distribution Width 16.1 % (13.2-15.2)
[2018-02-11 20:09] VITALS: BP 123/72
== END 2018-02-11 19:59 | disposition home or self-care (01) ==
LOC: ED 17:13
DX: I12.0 Hypertensive chronic kidney disease with stage 5 chronic kidney disease or end stage renal disease (principal); N18.6 End stage renal disease; F17.200 Nicotine dependence, unspecified, uncomplicated; Z99.2 Dependence on renal dialysis; Z79.899 Other long term (current) drug therapy
CPT/HCPCS: 36415; 80048; 85025; 99284; G0480; 80320